=== PATIENT | female | born 1965 ===

== ENCOUNTER 2024-06-04 11:00 | Inpatient (IN) | payer OTHER ==
[~2024-06-04] VITALS: Ht 167.6 cm; Wt 128.8 kg
[2024-06-04 13:23] VITALS: BP 126/83
[2024-06-04] MEDS ORDERED: LEVOTHYROXINE175 MC1 PO (13:24)
[2024-06-04] MEDS ORDERED: TOPROL XL50 M1 PO (13:24)
[2024-06-04] MEDS ORDERED: IRBESARTAN-HCT1 EAC1 PO (13:24)
[2024-06-04 19:42] LABS: RH POSITIVE
[2024-06-07] MEDS ORDERED: METRONIDAZOLE/SODIUM CHLORIDE 500 MG/100 ML PIGGYBACK IV ONE (17:15)
[2024-06-07] MEDS ORDERED: POVIDONE-IODINE 118 ML BOTT TOP ONE (17:15)
[2024-06-07] MEDS ORDERED: CEFAZOLIN SODIUM 1,000 MG VIAL ONE (17:16)
[2024-06-07] MEDS ORDERED: THROMBIN,HU/FIBRINOGEN/CALCIUM 10 ML SYRINGE TOP ONE (18:48)
[2024-06-07] MEDS ORDERED: VISTASEAL DUAL APPICATOR 1 EACH APPL TOP ONE (18:51)
[2024-06-07] MEDS ORDERED: SUGAMMADEX SODIUM 200 MG/2 ML VIAL IV ONE (19:10)
[2024-06-07] MEDS ORDERED: MORPHINE SULFATE 4 MG/ML CARTRIDGE IV PRN (19:15)
[2024-06-07] MEDS ORDERED: RINGERS SOLUTION,LACTATED 1,000 ML IV SCH (19:15)
[2024-06-07] MEDS ORDERED: FAMOTIDINE/PF 20 MG/2 ML VIAL IV PUSH SCH (21:00)
[2024-06-07] MEDS ORDERED: SIMETHICONE 125 MG CAPSULE PO SCH (21:00)
[2024-06-07] MEDS ORDERED: DOCUSATE SODIUM 100MG CAP PO SCH (21:00)
[2024-06-07] MEDS ORDERED: FAMOTIDINE/PF 20 MG/2 ML VIAL ONE (21:30)
[2024-06-07 21:42] LABS: HEMATOCRIT 37.8 % (36.0-45.00); HEMOGLOBIN 12.2 g/dL (12.0-15.00); MEAN CELL VOLUME 85.4 fL (80.00-100.00); MEAN CORPUSCULAR HEMOGLOBIN 27.6 pg (27.00-32.0); MEAN CORPUSCULAR HGB CONC 32.3 g/dl (32.0-36.0); PLATELET COUNT 226 K/uL (150-450); RED BLOOD COUNT 4.42 M/uL (4.00-6.00); RED CELL DISTRIBUTION WIDTH 14.4 % (11.5-14.5)
[2024-06-07 22:04] LABS: ALBUMIN 3.1 gm/dL (3.4-5.0); CALCIUM 8.9 mg/dL (8.5-10.1); CREATININE SERUM 0.86 mg/dL (0.55-1.02); GFR 67.54; PHOSPHOROUS 3.4 mg/dL (2.5-4.9); POTASSIUM 3.94 mEq/L (3.5-5.1)
[2024-06-08] VITALS: BP 130/76; O2SAT 97
[2024-06-08] MEDS ORDERED: ACETAMINOPHEN 500 MG GEL..CAP PO SCH
[2024-06-08] MEDS ORDERED: CEFAZOLIN SODIUM 1,000 MG VIAL IV SCH (01:00)
[2024-06-08] MEDS ORDERED: GABAPENTIN 300 MG CAPSULE PO SCH (01:00)
[2024-06-08] MEDS ORDERED: METOCLOPRAMIDE HCL 5 MG/ML VIAL IV SCH (01:00)
[2024-06-08 06:46] LABS: HEMATOCRIT 34.8 % (36.0-45.00); HEMOGLOBIN 11.7 g/dL (12.0-15.00); MEAN CORPUSCULAR HEMOGLOBIN 27.9 pg (27.00-32.0); MEAN CORPUSCULAR HGB CONC 33.6 g/dl (32.0-36.0); PLATELET COUNT 216 K/uL (150-450); RED CELL DISTRIBUTION WIDTH 14.9 % (11.5-14.5)
[2024-06-08 07:22] LABS: ALBUMIN 2.7 gm/dL (3.4-5.0); CALCIUM 8.6 mg/dL (8.5-10.1); CREATININE SERUM 0.62 mg/dL (0.55-1.02); GFR 98.52; PHOSPHOROUS 3.3 mg/dL (2.5-4.9); POTASSIUM 3.59 mEq/L (3.5-5.1)
[2024-06-08 08:00] VITALS: BP 102/57
[2024-06-08] MEDS ORDERED: ENOXAPARIN SODIUM 40 MG/0.4 ML SYRINGE SUBCUTANEO SCH (09:00)
== END 2024-06-08 13:28 | disposition home or self-care (01) | DRG 743 ==
LOC: SURG 06-07 06:50 → O/R 06-07 06:50 → SURH 06-07 11:00 → SURG 06-07 20:13 → SURH 06-07 21:15 → SURG 06-08 13:28
PROVIDERS: Obstetrics & Gynecology; ADMIT Obstetrics & Gynecology Gynecologic Oncology; ATTEND Obstetrics & Gynecology Gynecologic Oncology
PROC: 0UT74ZZ Resection of Bilateral Fallopian Tubes, Percutaneous Endoscopic Approach (ICD-10-PCS; 2024-06-07)
PROC: 0UT24ZZ Resection of Bilateral Ovaries, Percutaneous Endoscopic Approach (ICD-10-PCS; 2024-06-07)
PROC: 07BC4ZZ Excision of Pelvis Lymphatic, Percutaneous Endoscopic Approach (ICD-10-PCS; 2024-06-07)
PROC: 8E0W4CZ Robotic Assisted Procedure of Trunk Region, Percutaneous Endoscopic Approach (ICD-10-PCS; 2024-06-07)
PROC: 0UT94ZZ Resection of Uterus, Percutaneous Endoscopic Approach (ICD-10-PCS; principal; 2024-06-07 21:15)
DX: N85.02 Endometrial intraepithelial neoplasia [EIN] (principal); D36.0 Benign neoplasm of lymph nodes
CPT/HCPCS: 58548; S2900